=== PATIENT | male | born 1960 | race Caucasian/White ===

== ENCOUNTER 2019-04-08 10:18 | Inpatient (IN) | payer BC ==
[2019-04-08 11:00] VITALS: BMI 20.9
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
[2019-04-08] MEDS ORDERED: ONDANSETRON *ODT* 4 MG TABLET SL PRN (13:51)
[2019-04-08] MEDS ORDERED: chlordiazePOXIDE HCL 25 MG CAPSULE PO PRN (13:51)
[2019-04-08] MEDS ORDERED: MAGNESIUM CITRATE 300 ML BOTTLE PO PRN (13:51)
[2019-04-08] MEDS ORDERED: BISMUTH SUBSALICYLATE 262 MG/15 ML BTL PO PRN (13:51)
[2019-04-08] MEDS ORDERED: MAG HYDROX/AL HYDROX/SIMETH 30 ML UNIT-DOSE CUP PO PRN (13:51)
[2019-04-08] MEDS ORDERED: IBUPROFEN 400 MG TABLET (FP) PO PRN (13:51)
[2019-04-08] MEDS ORDERED: hydrOXYzine PAMOATE 25 MG CAPSULE (FP) PO PRN (13:51)
[2019-04-08] MEDS ORDERED: ACETAMINOPHEN 325 MG TABLET (FP) PO PRN ×2 (13:51)
[2019-04-08] MEDS ORDERED: MENTHOL/PHENOL 1 EACH UD MM PRN (13:51)
[2019-04-08 15:06] LABS: ALBUMIN 3.8 g/dl (3.4-5.0); BILIRUBIN,TOTAL 0.8 mg/dL (0.2-1); CALCIUM 9.1 mg/dL (8.5-10.1); CREATININE 0.7 mg/dL (0.55-1.3); HEMATOCRIT 41.8 % (35.4-49); HEMOGLOBIN 14.4 GM/dL (11.7-16.9); MCH 35.1 pg (25.7-33.7); MCHC 34.6 g/dl (32.0-35.9); MEAN CELL VOLUME 101.6 fl (80-96); MEAN PLT VOLUME 9.6 fl (7.5-11.1); PLATELET COUNT 100 K/MM3 (134-434); RBC 4.11 M/mm3 (4.00-5.60); RDW 12.8 % (11.9-15.9); TOT PROT 7.5 g/dl (6.4-8.2); WHITE BLOOD COUNT 2.7 K/mm3 (4.0-10.0)
[2019-04-08] MEDS ORDERED: chlordiazePOXIDE HCL 25 MG CAPSULE PO ONE (15:30)
--- NOTE | 2019-04-08 15:40 | EKG ---
Test Reason : Blood Pressure : / mmHG Vent. Rate : 043 BPM Atrial Rate : 043 BPM P-R Int : 142 ms QRS Dur : 092 ms QT Int : 474 ms P-R-T Axes : 031 026 050 degrees QTc Int : 400 ms MARKED SINUS BRADYCARDIA ABNORMAL ECG NO PREVIOUS ECGS AVAILABLE Confirmed by MARIELA BARDALES MD ([id number]) on 04/08/2019 3:40:05 PM Referred By: Confirmed By:MARIELA BARDALES MD
[2019-04-08] MEDS: chlordiazePOXIDE HCL 25 MG CAPSULE PO SCH ×2 (18:04→23:02)
[2019-04-08] MEDS: HYDROCORTISONE 1% TOPICAL CREAM 30 GM TUBE TP SCH ×2 (18:31→23:01)
[2019-04-08] MEDS: BACLOFEN 10 MG TABLET (FP) PO PRN (23:00)
[2019-04-08] MEDS: THIAMINE HCL 100 MG TABLET (FP) PO SCH (23:00)
[2019-04-09] MEDS: chlordiazePOXIDE HCL 25 MG CAPSULE PO SCH ×4 (05:59→22:07)
[2019-04-09] MEDS: PRENATAL VITAMINS W/ FOLIC ACID TABLET (FP) PO SCH (10:02)
[2019-04-09] MEDS: HYDROCORTISONE 1% TOPICAL CREAM 30 GM TUBE TP SCH ×4 (10:03→22:08)
--- NOTE | 2019-04-09 12:02 | PN ---
S CIWA - CIWA Score Nausea/Vomitin Muscle Tremors: 2 Anxiety: 3 Agitation: 2 Paroxysmal Sweats: 1-Minimal Palms Moist Orientation: 0-Oriented Tacttile Disturbances: 1-Very Mild Itch/Numbness Auditory Disturbances: 1-Very Mild Visual Disturbances: 0-None Headache: 2-Mild CIWA-Ar Total Score: 14 [facility] Progress Note (SOAP) Subjective: alert,irritable,anxious,interrupted sleep,tremor Objective: 04/09/19 11:59 Vital Signs Temperature 97.0 F L 04/09/19 09:41 Pulse Rate 41 L 04/09/19 09:41 Respiratory Rate 17 04/09/19 09:41 Blood Pressure 115/71 04/09/19 09:41 O2 Sat by Pulse Oximetry (%) Laboratory Last Values WBC 2.7 K/mm3 (4.0-10.0) L 04/08/19 13:40 RBC 4.11 M/mm3 (4.00-5.60) 04/08/19 13:40 Hgb 14.4 GM/dL (11.7-16.9) 04/08/19 13:40 Hct 41.8 % (35.4-49) 04/08/19 13:40 MCV 101.6 fl (80-96) H 04/08/19 13:40 MCH 35.1 pg (25.7-33.7) H 04/08/19 13:40 MCHC 34.6 g/dl (32.0-35.9) 04/08/19 13:40 RDW 12.8 % (11.9-15.9) 04/08/19 13:40 Plt Count 100 K/MM3 (134-434) L 04/08/19 13:40 MPV 9.6 fl (7.5-11.1) 04/08/19 13:40 Platelet Comment No clumping noted 04/08/19 13:40 Sodium 138 mmol/L (136-145) 04/08/19 13:40 Potassium 5.0 mmol/L (3.5-5.1) 04/08/19 13:40 Chloride 102 mmol/L (98-107) 04/08/19 13:40 Carbon Dioxide 30 mmol/L (21-32) 04/08/19 13:40 Anion Gap 6 MMOL/L (8-16) L 04/08/19 13:40 BUN 7 mg/dL (7-18) 04/08/19 13:40 Creatinine 0.7 mg/dL (0.55-1.3) 04/08/19 13:40 Est GFR (CKD-EPI)AfAm 121.41 04/08/19 13:40 Est GFR (CKD-EPI)NonAf 104.76 04/08/19 13:40 Random Glucose 95 mg/dL (74-106) 04/08/19 13:40 Calcium 9.1 mg/dL (8.5-10.1) 04/08/19 13:40 Total Bilirubin 0.8 mg/dL (0.2-1) 04/08/19 13:40 AST 79 U/L (15-37) H 04/08/19 13:40 ALT 81 U/L (13-61) H 04/08/19 13:40 Alkaline Phosphatase 51 U/L (45-117) 04/08/19 13:40 Total Protein 7.5 g/dl (6.4-8.2) 04/08/19 13:40 Albumin 3.8 g/dl (3.4-5.0) 04/08/19 13:40 RPR Titer Nonreactive (NONREACTIVE) 04/08/19 13:40 Assessment: 04/09/19 12:00 withdrawal symptom Plan: continue detox,wbc is 2.7,ast 79,alt81
--- NOTE | 2019-04-09 12:31 | CONSULT ---
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 Examined at [address] [place] [address]. Patient is single, a father of two, domiciled, unemployed and supported on odd jobs. Mr Ricks is a [employer] (three years of service). Substance Abuse History: Confirmed by the patient in this interview. Details in current [facility] report : Smoking history: Current every day smoker. Have you smoked in the past 12 months: Yes. Aproximately how many cigarettes per day: 6. Hx Chewing Tobacco Use: No. Initiated information on smoking cessation: Yes. 'Breaking Loose' booklet given: 04/08/19. - Substance & Tx. History. Hx Alcohol Use: Yes. Hx Substance Use: No. Substance Use Type: Alcohol. Hx Substance Use Treatment: Yes (last detox few months ago at [facility]). - Substances abused. Alcohol. Substance route: Oral. Frequency: Daily. Amount used: VODKA- 1L BEERS- 10X 16OZ CANS. Age of first use: 11. Date of last use: Medical History: Remarkable for hepatitis C and a recent history of withdrawal- related seizures. Psychiatric History: Patient endorses a history of one psychiatric hospitalization, in 2018, at the [facility] in the [place]. Diagnosed with MDD and PTSD. Mr Ricks indicates that he has been prescribed psychotropic medications. No recall of names. " I never took them. I don't like taking medications of any kind. I threw them away. I don't remember their names ". No show at the [facility] OPD clinic for 3-4 months (self-report). Patient denies history of suicide attempts. Physical/Sexual Abuse/Trauma History: Patient denies. Additional Comment: Urine drug screen results: THC-Marijuana. Noted. Mental Status Exam - Mental Status Exam Alert and Oriented to: Time, Place, Person Cognitive Function: Good Patient Appearance: Well Groomed Mood: Withdrawn, Hopeful Affect: Appropriate, Normal Range Patient Behavior: Fatigued, Appropriate (friendly), Cooperative Speech Pattern: Clear, Appropriate Voice Loudness: Normal Thought Process: Intact, Goal Oriented Thought Disorder: Not Present Hallucinations: Denies Suicidal Ideation: Denies Homicidal Ideation: Denies Insight/Judgement: Fair Sleep: Well Appetite: Good Muscle strength/Tone: Normal Gait/Station: Normal Psychiatric Findings - Problem List ([place] 1, 2,3) (1) Alcohol dependence with uncomplicated withdrawal Status: Acute (2) Cannabis dependence Status: Chronic (3) Nicotine dependence Status: Acute Qualifiers: Nicotine product type: cigarettes Substance use status: in withdrawal Qualified Code(s): F17.213 - Nicotine dependence, cigarettes, with withdrawal (4) History of depression Status: Chronic - Initial Treatment Plan Initial Treatment Plan: Psychoeducation. Sleep hygiene. Relapse prevention (MAT ) : discussed in this session. Detoxification. Observation.
[2019-04-09] MEDS: BACLOFEN 10 MG TABLET (FP) PO PRN (22:07)
[2019-04-09] MEDS: THIAMINE HCL 100 MG TABLET (FP) PO SCH (22:07)
[2019-04-09] MEDS: MELATONIN 5 MG TABLETS PO PRN (22:07)
[2019-04-10] MEDS: chlordiazePOXIDE HCL 25 MG CAPSULE PO SCH ×2 (05:47→10:22)
[2019-04-10] MEDS: PRENATAL VITAMINS W/ FOLIC ACID TABLET (FP) PO SCH (10:21)
[2019-04-10] MEDS: HYDROCORTISONE 1% TOPICAL CREAM 30 GM TUBE TP SCH ×4 (10:23→22:24)
--- NOTE | 2019-04-10 11:42 | PN ---
[facility] CIWA - CIWA Score Nausea/Vomitin-No Nausea/No Vomiting Muscle Tremors: 2 Anxiety: 2 Agitation: 2 Paroxysmal Sweats: 3 Orientation: 0-Oriented Tacttile Disturbances: 0-None Auditory Disturbances: 0-None Visual Disturbances: 0-None Headache: 2-Mild CIWA-Ar Total Score: 11 [facility] Progress Note (SOAP) Subjective: c/o sweats, anxiety, headache, and interrupted sleep. Objective: 04/10/19 11:41 Vital Signs 04/10/19 04/10/19 06:13 09:36 Temperature 97.2 F L 96.3 F L Pulse Rate 47 L 55 L Respiratory 18 18 Rate Blood Pressure 120/69 121/74 Laboratory Last Values WBC 2.7 K/mm3 (4.0-10.0) L 04/08/19 13:40 RBC 4.11 M/mm3 (4.00-5.60) 04/08/19 13:40 Hgb 14.4 GM/dL (11.7-16.9) 04/08/19 13:40 Hct 41.8 % (35.4-49) 04/08/19 13:40 MCV 101.6 fl (80-96) H 04/08/19 13:40 MCH 35.1 pg (25.7-33.7) H 04/08/19 13:40 MCHC 34.6 g/dl (32.0-35.9) 04/08/19 13:40 RDW 12.8 % (11.9-15.9) 04/08/19 13:40 Plt Count 100 K/MM3 (134-434) L 04/08/19 13:40 MPV 9.6 fl (7.5-11.1) 04/08/19 13:40 Platelet Comment No clumping noted 04/08/19 13:40 Sodium 138 mmol/L (136-145) 04/08/19 13:40 Potassium 5.0 mmol/L (3.5-5.1) 04/08/19 13:40 Chloride 102 mmol/L (98-107) 04/08/19 13:40 Carbon Dioxide 30 mmol/L (21-32) 04/08/19 13:40 Anion Gap 6 MMOL/L (8-16) L 04/08/19 13:40 BUN 7 mg/dL (7-18) 04/08/19 13:40 Creatinine 0.7 mg/dL (0.55-1.3) 04/08/19 13:40 Est GFR (CKD-EPI)AfAm 121.41 04/08/19 13:40 Est GFR (CKD-EPI)NonAf 104.76 04/08/19 13:40 Random Glucose 95 mg/dL (74-106) 04/08/19 13:40 Calcium 9.1 mg/dL (8.5-10.1) 04/08/19 13:40 Total Bilirubin 0.8 mg/dL (0.2-1) 04/08/19 13:40 AST 79 U/L (15-37) H 04/08/19 13:40 ALT 81 U/L (13-61) H 04/08/19 13:40 Alkaline Phosphatase 51 U/L (45-117) 04/08/19 13:40 Total Protein 7.5 g/dl (6.4-8.2) 04/08/19 13:40 Albumin 3.8 g/dl (3.4-5.0) 04/08/19 13:40 RPR Titer Nonreactive (NONREACTIVE) 04/08/19 13:40 Labs noted. Assessment: 04/10/19 11:42 AOX3, in no respiratory distress, full rom, ambulating in the unit. Withdrawal symptoms. Plan: continue detox increase fluids
[2019-04-10] MEDS: MAGNESIUM HYDROX 2400MG/30ML ORAL SUSPENSION 30 ML CUP PO PRN (14:30)
[2019-04-10] MEDS: chlordiazePOXIDE HCL 10 MG CAPSULE PO SCH ×2 (17:20→22:23)
[2019-04-10] MEDS: THIAMINE HCL 100 MG TABLET (FP) PO SCH (22:23)
[2019-04-11] MEDS: chlordiazePOXIDE HCL 10 MG CAPSULE PO SCH ×3 (05:50→16:58)
[2019-04-11] MEDS: PRENATAL VITAMINS W/ FOLIC ACID TABLET (FP) PO SCH (10:28)
[2019-04-11] MEDS: HYDROCORTISONE 1% TOPICAL CREAM 30 GM TUBE TP SCH ×4 (10:28→22:12)
--- NOTE | 2019-04-11 12:22 | PN ---
[facility] CIWA - CIWA Score Nausea/Vomitin-Mild Nausea/No Vomiting Muscle Tremors: 2 Anxiety: 2 Agitation: 1-Slight > Activity Paroxysmal Sweats: 1-Minimal Palms Moist Orientation: 1-Uncertain about Date Tacttile Disturbances: 1-Very Mild Itch/Numbness Auditory Disturbances: 0-None Visual Disturbances: 0-None Headache: 0-None Present CIWA-Ar Total Score: 9 S Progress Note (SOAP) Subjective: DOING BETTER TODAY READY TO BE DISCHARGED TOMORROW PREFERRING TO RETURN TO OUT PATIENT ALCOHOL REHAB PROGRAM NEAR HOME Objective: 04/11/19 12:21 Vital Signs Temperature 97.2 F L 04/11/19 06:12 Pulse Rate 53 L 04/11/19 06:12 Respiratory Rate 16 04/11/19 06:12 Blood Pressure 135/81 04/11/19 06:12 O2 Sat by Pulse Oximetry (%) Laboratory Last Values WBC 2.7 K/mm3 (4.0-10.0) L 04/08/19 13:40 RBC 4.11 M/mm3 (4.00-5.60) 04/08/19 13:40 Hgb 14.4 GM/dL (11.7-16.9) 04/08/19 13:40 Hct 41.8 % (35.4-49) 04/08/19 13:40 MCV 101.6 fl (80-96) H 04/08/19 13:40 MCH 35.1 pg (25.7-33.7) H 04/08/19 13:40 MCHC 34.6 g/dl (32.0-35.9) 04/08/19 13:40 RDW 12.8 % (11.9-15.9) 04/08/19 13:40 Plt Count 100 K/MM3 (134-434) L 04/08/19 13:40 MPV 9.6 fl (7.5-11.1) 04/08/19 13:40 Platelet Comment No clumping noted 04/08/19 13:40 Sodium 138 mmol/L (136-145) 04/08/19 13:40 Potassium 5.0 mmol/L (3.5-5.1) 04/08/19 13:40 Chloride 102 mmol/L (98-107) 04/08/19 13:40 Carbon Dioxide 30 mmol/L (21-32) 04/08/19 13:40 Anion Gap 6 MMOL/L (8-16) L 04/08/19 13:40 BUN 7 mg/dL (7-18) 04/08/19 13:40 Creatinine 0.7 mg/dL (0.55-1.3) 04/08/19 13:40 Est GFR (CKD-EPI)AfAm 121.41 04/08/19 13:40 Est GFR (CKD-EPI)NonAf 104.76 04/08/19 13:40 Random Glucose 95 mg/dL (74-106) 04/08/19 13:40 Calcium 9.1 mg/dL (8.5-10.1) 04/08/19 13:40 Total Bilirubin 0.8 mg/dL (0.2-1) 04/08/19 13:40 AST 79 U/L (15-37) H 04/08/19 13:40 ALT 81 U/L (13-61) H 04/08/19 13:40 Alkaline Phosphatase 51 U/L (45-117) 04/08/19 13:40 Total Protein 7.5 g/dl (6.4-8.2) 04/08/19 13:40 Albumin 3.8 g/dl (3.4-5.0) 04/08/19 13:40 RPR Titer Nonreactive (NONREACTIVE) 04/08/19 13:40 LAB NOTED DISCONTINUE MOTRIN 04/11/19 12:22 Assessment: 04/11/19 12:22 ALCOHOL WITHDRAWAL SX Plan: CONTINUE ALCOHOL DETOX
[2019-04-11] MEDS: MAGNESIUM HYDROX 2400MG/30ML ORAL SUSPENSION 30 ML CUP PO PRN (16:58)
[2019-04-11] MEDS: BACLOFEN 10 MG TABLET (FP) PO PRN (17:01)
[2019-04-11] MEDS: MELATONIN 5 MG TABLETS PO PRN (22:12)
[2019-04-11] MEDS: THIAMINE HCL 100 MG TABLET (FP) PO SCH (22:12)
[2019-04-12] MEDS: chlordiazePOXIDE HCL 10 MG CAPSULE PO SCH (05:11)
[2019-04-12 09:08] VITALS: BP 115/71; PULSE 58; TEMP 96.1
--- NOTE | 2019-04-12 11:00 | DS ---
[facility] Detox Discharge Summary Admission Date: 04/08/19 Discharge Date: 04/12/19 - History Present History: Alcohol Dependence Additional Comments: 59 years old male admitted on 04/08/19 for alcohol withdrawal stabilization completed detox regimen aftercare community support self help group Pertinent Past History: recommend the patient brings in medication list and lab report to primary care provider follow up low wbc patient is asymptomatic at the present time encourage to discover low wbc origin - Physical Exam Results Vital Signs: Vital Signs Temperature 96.1 F L 04/12/19 09:07 Pulse Rate 58 L 04/12/19 09:07 Respiratory Rate 18 04/12/19 09:07 Blood Pressure 115/71 04/12/19 09:07 O2 Sat by Pulse Oximetry (%) Pertinent Admission Physical Exam Findings: alcohol withdrawal sx Laboratory Last Values WBC 2.7 K/mm3 (4.0-10.0) L 04/08/19 13:40 RBC 4.11 M/mm3 (4.00-5.60) 04/08/19 13:40 Hgb 14.4 GM/dL (11.7-16.9) 04/08/19 13:40 Hct 41.8 % (35.4-49) 04/08/19 13:40 MCV 101.6 fl (80-96) H 04/08/19 13:40 MCH 35.1 pg (25.7-33.7) H 04/08/19 13:40 MCHC 34.6 g/dl (32.0-35.9) 04/08/19 13:40 RDW 12.8 % (11.9-15.9) 04/08/19 13:40 Plt Count 100 K/MM3 (134-434) L 04/08/19 13:40 MPV 9.6 fl (7.5-11.1) 04/08/19 13:40 Platelet Comment No clumping noted 04/08/19 13:40 Sodium 138 mmol/L (136-145) 04/08/19 13:40 Potassium 5.0 mmol/L (3.5-5.1) 04/08/19 13:40 Chloride 102 mmol/L (98-107) 04/08/19 13:40 Carbon Dioxide 30 mmol/L (21-32) 04/08/19 13:40 Anion Gap 6 MMOL/L (8-16) L 04/08/19 13:40 BUN 7 mg/dL (7-18) 04/08/19 13:40 Creatinine 0.7 mg/dL (0.55-1.3) 04/08/19 13:40 Est GFR (CKD-EPI)AfAm 121.41 04/08/19 13:40 Est GFR (CKD-EPI)NonAf 104.76 04/08/19 13:40 Random Glucose 95 mg/dL (74-106) 04/08/19 13:40 Calcium 9.1 mg/dL (8.5-10.1) 04/08/19 13:40 Total Bilirubin 0.8 mg/dL (0.2-1) 04/08/19 13:40 AST 79 U/L (15-37) H 04/08/19 13:40 ALT 81 U/L (13-61) H 04/08/19 13:40 Alkaline Phosphatase 51 U/L (45-117) 04/08/19 13:40 Total Protein 7.5 g/dl (6.4-8.2) 04/08/19 13:40 Albumin 3.8 g/dl (3.4-5.0) 04/08/19 13:40 RPR Titer Nonreactive (NONREACTIVE) 04/08/19 13:40 lab noted low wbc low wbc - Treatment Hospital Course: Detox Protocol Followed, Detoxed Safely, Responded well, Discharged Condition Good, Rehab Referral Accepted Patient has Accepted a Rehab Referral to: community self help support - Medication Discharge Medications: Ambulatory Orders NK [No Known Home Medication] 04/08/19 - Diagnosis (1) Alcohol dependence with uncomplicated withdrawal Current Visit: Yes Status: Acute (2) Neutropenia Current Visit: Yes Status: Chronic Qualifiers: Neutropenia type: unspecified Qualified Code(s): D70.9 - Neutropenia, unspecified (3) Nicotine dependence Current Visit: Yes Status: Acute Qualifiers: Nicotine product type: cigarettes Substance use status: in withdrawal Qualified Code(s): F17.213 - Nicotine dependence, cigarettes, with withdrawal - AMA Did Patient Leave Against Medical Advice: No
== END 2019-04-12 09:12 | disposition home or self-care (01) | DRG 775 ==
LOC: YASAS 10:18 → Y3N 15:08
PROVIDERS: ADMIT Surgery; ATTEND Surgery
PROC: HZ2ZZZZ Detoxification Services for Substance Abuse Treatment (ICD-10-PCS; principal; 2019-04-08)
DX: F10.230 Alcohol dependence with withdrawal, uncomplicated (principal); F12.20 Cannabis dependence, uncomplicated; F17.210 Nicotine dependence, cigarettes, uncomplicated; F41.9 Anxiety disorder, unspecified; F32.9 Major depressive disorder, single episode, unspecified; D70.9 Neutropenia, unspecified; B18.2 Chronic viral hepatitis C; Z86.69 Personal history of other diseases of the nervous system and sense organs; Z94.5 Skin transplant status
CPT/HCPCS: 36415; 71046-TC-FY; 80053; 85027; 86593; 93005; 93010; J0475